=== PATIENT | female | born 1940 | race Caucasian/White ===

== ENCOUNTER 2018-02-11 06:30 | Day surgery (SDC) | payer MEDICARE ==
[2018-02-11] MEDS ORDERED: Sodium Chloride 0.9% 1,000 ML IV SCH (07:00)
[2018-02-11] MEDS ORDERED: fentaNYL 100 MCG/2 ML SDV ONE (07:23)
[2018-02-11] MEDS ORDERED: Propofol 200 MG/20 ML SDV ONE (07:23)
--- NOTE | 2018-02-11 09:00 | OR ---
DATE OF PROCEDURE: 02/11/2018 PROCEDURE PERFORMED: 1. EGD. 2. Colonoscopy. FINDINGS: 1. Gastric polyp, approximately 1 cm, mostly removed using cold biopsy forceps. 2. Minimal evidence of colitis, biopsied using cold biopsy forceps in the cecum and rectum. 3. Diverticulosis, moderate, mostly limited to the sigmoid colon. COMPLICATIONS: None. SAMPLE CASE PORTER: None. PREOPERATIVE DIAGNOSES: Abdominal pain, nausea, vomiting, diarrhea. POSTOPERATIVE DIAGNOSES: Abdominal pain, nausea, vomiting, diarrhea. RISKS: Risks, benefits, alternatives, and limitations including, but not limited to infection, bleeding, and perforation were explained to the patient, who wished to proceed. PROCEDURE IN DETAIL: The patient was placed in left lateral decubitus position. EGD scope was introduced and advanced atraumatically to the second part of the duodenum. No evidence of duodenitis. There was no ulceration. No significant reflux. No hiatal hernia. In the stomach, there was a small gastric polyp, which appeared to be benign. This was biopsied multiple times using cold biopsy forceps. On retroflex ,there was no significant hiatal hernia. The GE junction was normal. The esophagus was normal. Digital rectal exam was performed, which showed small mild external hemorrhoids. The scope was introduced and advanced atraumatically into the ileocecal valve. A photo was taken. The scope was brought back to the ascending, transverse, descending colon, and retroflexed. In the rectum and the cecum, very mild erythema, which was biopsied using cold biopsy forceps. The diverticulosis was described as moderate and limited to the sigmoid colon. No abnormalities on retroflexion. The patient tolerated the procedure well. Viet Duvall MD /[id number]
== END 2018-02-11 09:10 | disposition home or self-care (01) ==
LOC: JP.SDS 06:30
PROVIDERS: ATTEND Surgery
DX: R10.9 Unspecified abdominal pain (principal); R19.7 Diarrhea, unspecified; R11.0 Nausea; K57.30 Diverticulosis of large intestine without perforation or abscess without bleeding; K31.7 Polyp of stomach and duodenum; G47.33 Obstructive sleep apnea (adult) (pediatric); I10 Essential (primary) hypertension; F32.9 Major depressive disorder, single episode, unspecified; Z88.8 Allergy status to other drugs, medicaments and biological substances
CPT/HCPCS: 43239; 45380; J2704; J3010; J7030; 88305